=== PATIENT | female | born 1990 | race Two or more races ===

== ENCOUNTER 2020-01-05 14:19 | Outpatient (CLI) | payer OTHER ==
[~2020-01-05] VITALS: Ht 162.6 cm; Wt 98.8 kg
[2020-01-05 14:45] VITALS: BP 112/68
[2020-01-05 15:29] LABS: HEMATOCRIT 36.3 % (36.0-47.0); HEMOGLOBIN 12.2 g/dl (12.0-15.5); MEAN CORPUSCULAR HGB CONC 33.6 g/dl (32.0-36.5); MEAN CORPUSCULAR VOLUME 89.2 fl (80.0-96.0); PLATELET COUNT, AUTOMATED 215 10^3/uL (150-450); RED BLOOD COUNT 4.07 10^6/uL (4.00-5.40); WHITE BLOOD COUNT 6.8 10^3/uL (4.0-10.0)
[2020-01-05 15:59] LABS: ALBUMIN 2.5 GM/DL (3.2-5.2); ALT/SGPT 19 U/L (12-78); BILIRUBIN,TOTAL 0.1 MG/DL (0.2-1.0); BLOOD UREA NITROGEN 3 MG/DL (7-18); CALCIUM LEVEL 8.6 MG/DL (8.5-10.1); CARBON DIOXIDE LEVEL 23 MEQ/L (21-32); CHLORIDE LEVEL 106 MEQ/L (98-107); CREATININE FOR GFR 0.46 MG/DL (0.55-1.30); GLOMERULAR FILTRATION RATE > 60.0 (>60); GLUCOSE, FASTING 108 MG/DL (70-100); POTASSIUM SERUM 3.6 MEQ/L (3.5-5.1); SODIUM LEVEL 138 MEQ/L (136-145); TOTAL PROTEIN 6.4 GM/DL (6.4-8.2)
[2020-01-05 16:04] VITALS: BP 107/66
[2020-01-05] MEDS ORDERED: PRENTAB9 PO (16:32)
[2020-01-05] MEDS ORDERED: TUMS500C PO (16:32)
[2020-01-05 17:34] VITALS: BP 102/64
--- NOTE | 2020-01-14 06:57 | IPNPDOC ---
Obstetrical Progress Note Date of Service Jan 05, 2020 Subjective 29yo G1 at 36wks presents with diarrhea. She reports 2 loose bowel with blood tinged. Has had some nausea, but has tolerated PO. Reports active movement. No vaginal bleeding, LLOF or ctx. vss, AF cat 1 tracing, with no ctx. Gen: well appearing ABd: soft, gravid, nttp CBC and CHEM wnl -no bowel movement during observation A/P: 29yo G1 with diarrhea, currently stable Reassuring status -home with [facility], PTL and fever precautions f/u at next OB appt Assessment Variability: Moderate Accelerations: Positive Heart Rate Tracing: Category I Tocometer Contractions: No Assessment and Plan Status: Reassuring NIRANJAN BENITES MD. Jan 14, 2020 06:57
== END 2020-01-05 17:55 | disposition home or self-care (01) ==
LOC: M LDO 14:19
PROVIDERS: ATTEND Obstetrics & Gynecology
DX: O99.613 Diseases of the digestive system complicating pregnancy, third trimester (principal); K92.1 Melena; Z88.8 Allergy status to other drugs, medicaments and biological substances; Z79.899 Other long term (current) drug therapy; Z3A.36 36 weeks gestation of pregnancy
CPT/HCPCS: 36415; 59025; 80053; 85027; G0378; G0463

== ENCOUNTER 2020-02-27 20:49 | Inpatient (IN) | payer OTHER ==
[~2020-02-27] VITALS: Ht 162.6 cm; Wt 99.3 kg
[~2020-02-27 20:49] MED LIST: PRENTAB9 PO; TUMS500C PO
[2020-02-27] MEDS ORDERED: OXYTOCIN 30 UNITS IN 0.9% NaCl 500ML IV BAG (J2590) As Ordered ONE (21:10)
[2020-02-27 21:23] VITALS: BP 120/69
[2020-02-27] MEDS ORDERED: PENICILLIN G POTASSIUM IV 5 MU in D5W MINI-BAG PLUS 100 ML IV STA (21:28)
--- NOTE | 2020-02-27 21:44 | HPEPDOC ---
Obstetrical History & Physical General Date of Admission Feb 27, 2020 at 21:12 History of Present Illness 29yo G1 at 39w5d presents with c/o contractions and LOF. Describes meconium stai anais amniotic fluid. 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 History: No pertinent history Past Medical History Surgical History: Denies/None Family History Significant Family History: No pertinent family hx Social History Marital Status: Family situation: Spouse/partner home Psychosocial History: No pertinent psych hx * Smoker: non-smoker Alcohol: Denies Allergies Coded Allergies: aspirin (Verified Allergy, Severe, dificulty breathing, 01/05/20) Medications Scheduled No.137/Iron/Folic Acd ( Vitamin Tablet) 1 Each Tablet, 1 TAB PO DAILY Miscellaneous Medications Calcium Carbonate (Tums) 200 Mg Tab.chew, 1,000 MG PO for heartburn Physical Examination Physical Examination GENERAL: Alert and oriented times three. BREAST: . ABDOMEN: Gravid and non-tender to touch. FETUS: Is vertex (VTX) by sterile vaginal examination (SVE), fetus is vertex (VTX) by Thien. HEART RATE: Regular rate and rhythm. LUNGS: Clear to auscultation (CTA). EXTREMITIES: No edema. No clonus. Deep tendon reflexes (DTRs) + . Laboratory Data 24H LABS Laboratory Tests 2 02/27/20 21:17: Serology Scanned Report Hepatitis B Testing Pertinent Laboratoy Data Blood Type: O- RBC Antibody Screen: Negative HIV: Negative Hepatitis B: Negative Rapid Plasma Reagin: Nonreactive Rubella: Immune Chlamydia/Gonorrhea: Negative Group B Streptococcus: Positive Glucose Tolerance Test: 120 Anatomy Ultrasound Placenta Location: Posterior Normal Anatomy: Yes Placenta Previa: No Vaginal Examination Dilation: complete Effacement: 100% Station: -1, 0 Cervical Position: Anterior Presentation: Cephalic presentation Assessment Variability: Moderate Accelerations: Positive Tocometer Contractions: Yes Frequency: every 2-2 min. Assessment/Plan Assessment 29-year-old 1 at 39 weeks for basis gestational age in active labor Reassuring status GBS positive Meconium-stained amniotic fluid Plan Admit and orient. Manager Integrated and consent. Diet: Clears. Group B Streptococcus (GBS) positive. Labs and intravenous (IV) per unit protocol. Anticipate normal spontaneous delivery (). C-S as appropriate. NIRANJAN BENITES MD. Feb 27, 2020 21:44
[2020-02-27 21:45] LABS: HEMATOCRIT 41.3 % (36.0-47.0); HEMOGLOBIN 13.3 g/dl (12.0-15.5); MEAN CORPUSCULAR HEMOGLOBIN 28.8 pg (27.0-33.0); MEAN CORPUSCULAR HGB CONC 32.2 g/dl (32.0-36.5); MEAN CORPUSCULAR VOLUME 89.4 fl (80.0-96.0); PLATELET COUNT, AUTOMATED 215 10^3/uL (150-450); RED BLOOD COUNT 4.62 10^6/uL (4.00-5.40); WHITE BLOOD COUNT 13.5 10^3/uL (4.0-10.0)
[2020-02-27 22:20] VITALS: BP 117/62
[2020-02-27] MEDS ORDERED: OXYTOCIN DRIP 30 UNITS in IV 1 EA IV SCH (22:34)
[2020-02-27 22:35] VITALS: BP 119/64
[2020-02-27] MEDS ORDERED: DIBUCAINE 1% OINTMENT 30GM TOP PRN (22:45)
[2020-02-27] MEDS ORDERED: METHYLERGONOVINE MALEATE 0.2 MG TAB PO PRN (22:45)
[2020-02-27] MEDS ORDERED: ACETAMINOPHEN TAB 650MG DOSE (2X325MG) PO PRN (22:45)
[2020-02-27] MEDS ORDERED: MEASLES,MUMPS,RUBELLA VACCINE INJ (MMR-II) (90707) SC SCH (22:45)
[2020-02-27] MEDS ORDERED: MOM 30ML SUSPENSION UDC PO PRN (22:45)
[2020-02-27] MEDS ORDERED: ACETAMINOPHEN 500 MG TAB PO PRN (22:45)
[2020-02-27] MEDS ORDERED: RHOGAM 300 MCG (1500 IU) INJ (J2790) IM SCH (22:45)
[2020-02-27] MEDS ORDERED: IBUPROFEN 600MG TAB PO PRN (22:45)
[2020-02-27] MEDS ORDERED: ANUSOL HC CREAM 30GM TOP PRN (22:45)
[2020-02-27] MEDS ORDERED: IBUPROFEN 800 MG TAB PO PRN (22:45)
--- NOTE | 2020-02-27 23:02 | DNPDOC ---
[facility] Delivery Note Delivery Note DATE OF DELIVERY: 02/27/2020 TIME OF : 2152 GENDER: Female. APGARS: 9 and 9. WEIGHT: 3160 grams or 6 pounds 15 ounces. LACERATIONS: Bilateral vaginal wall laceration ANESTHESIA: none ESTIMATED BLOOD LOSS: 300ml COUNTS: 5 laparotomy sponges accounted for prior to after delivery. 4 sharps removed from delivery field. DELIVERY NOTE: On 02/27/2020 at 2153, Mrs. Rubin a 29-year-old 1 now para 1, had a spontaneous vaginal delivery of viable female , Apgars, 9 and 9 and weight 3160 g or 6 lbs. 15 oz. Head was delivered occiput anterior (OA), followed by delivery of the shoulders and corpus. was handed to mom with a good cry. Cord was clamped times two and was cut by support person under my direction. Placenta was then drained and delivered grossly intact. A premixed bag of 500 mL of normal saline with 30 units of Pitocin was then bolused along with uterine massage until the uterus was firm. On inspection there where bilateral vaginal wall laceration. They where repaired with 3-0 Vicryl after infusion with 1% lidocaine. On reinspection, cervix, vagina, perineum was grossly intact and hemostatic. Mom and baby in recovery on stable condition. The mom decided to name in daughter, Kalyn. NIRANJAN BENITES MD. Feb 27, 2020 23:02
[2020-02-27 23:05] VITALS: BP 111/62
[2020-02-27 23:20] VITALS: BP 112/56
[2020-02-27 23:36] VITALS: BP 109/59
[2020-02-28 00:15] VITALS: BP 104/63
[2020-02-28] MEDS ORDERED: LIDOCAINE 1% MDV 20ML VIAL SC ONE (00:45)
[2020-02-28] MEDS ORDERED: PENICILLIN G POTASSIUM IV 2.5 MU in IV 1 EA IV SCH (01:30)
[2020-02-28 06:00] VITALS: BP 95/57
[2020-02-28] MEDS: DOCUSATE SODIUM 100 MG CAP PO SCH ×2 (07:50→21:34)
[2020-02-28] MEDS ORDERED: PRENATAL VITAMINS CHEWABLE TABLET PO SCH (09:00)
--- NOTE | 2020-02-28 11:25 | IPNPDOC ---
Progress Note Date of Service: Feb 28, 2020 Day#: 1 Progress Note SUBJECT: Doing well without complaints. Ambulating, voiding and pain is well- controlled. Reports minimal lochia. OBJECTIVE: VITAL SIGNS: Within normal limits, afebrile. Alert and oriented times three. Abdomen: Fundus firm at U-2. Ext: neg calf tenderness. ASSESSMENT: day #1 status post . Recovering in stable condition. PLAN: 1. Continue routine care 2. Discharge plans for tomorrow VS, I&O, 24H, Fishbone Vital Signs/I&O Vital Signs Date Time Temp Pulse Resp B/P (MAP) Pulse Ox O2 Delivery O2 Flow Rate FiO2 02/28/20 06:00 98.2 89 16 95/57 (70) I&O- Last 24 Hours up to 6 AM 02/28/20 06:00 Output Total 900 ml Balance -900 ml Laboratory Data 24H LABS Laboratory Tests 2 02/27/20 21:17: Serology Scanned Report Hepatitis B Testing 02/27/20 21:40: Nucleated Red Blood Cells % (auto) 0.0 CBC/BMP Laboratory Tests 02/27/20 21:40 NIRANJAN BENITES MD. Feb 28, 2020 11:24
[2020-02-28 18:24] VITALS: BP 90/55
[2020-02-29] MEDS ORDERED: RHOGAM 300 MCG (1500 IU) INJ (J2790) IM SCH (03:30)
[2020-02-29] MEDS ORDERED: MEASLES,MUMPS,RUBELLA VACCINE INJ (MMR-II) (90707) SC SCH (03:30)
[2020-02-29] MEDS ORDERED: ACETAMINOPHEN TAB 650MG DOSE (2X325MG) PO PRN (03:30)
[2020-02-29] MEDS ORDERED: DIBUCAINE 1% OINTMENT 30GM TOP PRN (03:30)
[2020-02-29] MEDS ORDERED: IBUPROFEN 800 MG TAB PO PRN (03:30)
[2020-02-29] MEDS ORDERED: METHYLERGONOVINE MALEATE 0.2 MG TAB PO PRN (03:30)
[2020-02-29] MEDS ORDERED: DOCUSATE SODIUM 100 MG CAP PO PRN (03:30)
[2020-02-29] MEDS ORDERED: ACETAMINOPHEN 500 MG TAB PO PRN (03:30)
[2020-02-29] MEDS ORDERED: IBUPROFEN 600MG TAB PO PRN (03:30)
[2020-02-29] MEDS ORDERED: MOM 30ML SUSPENSION UDC PO PRN (03:30)
[2020-02-29] MEDS ORDERED: ANUSOL HC CREAM 30GM TOP PRN (03:30)
[2020-02-29 05:25] VITALS: BP 118/62
[2020-02-29] MEDS ORDERED: INFLUENZA QUADRIVALENT PF VACCINE 0.5ML SYRINGE IM ONE (09:00)
[2020-02-29] MEDS ORDERED: PRENATAL VITAMINS CHEWABLE TABLET PO SCH (09:00)
== END 2020-02-29 17:50 | disposition home or self-care (01) | DRG 807 ==
LOC: M LDO 20:49 → M LDI 21:12 → M OBS 02-28 00:11
PROVIDERS: ADMIT Obstetrics & Gynecology; ATTEND Obstetrics & Gynecology
PROC: 10E0XZZ Delivery of Products of Conception, External Approach (ICD-10-PCS; principal; 2020-02-27)
PROC: 0HQ9XZZ Repair Perineum Skin, External Approach (ICD-10-PCS; 2020-02-27)
DX: O77.0 Labor and delivery complicated by meconium in amniotic fluid (principal); Z37.0 Single live birth; Z3A.39 39 weeks gestation of pregnancy; O99.824 Streptococcus B carrier state complicating childbirth; O70.0 First degree perineal laceration during delivery